=== PATIENT | male | born 1955 | race Caucasian/White ===

== ENCOUNTER → 2018-11-19 | Outpatient (CLI) | payer BC | LOC: RAD 07:21 | DX: R13.12 Dysphagia, oropharyngeal phase (principal); R05 Cough; K14.8 Other diseases of tongue; Z85.810 Personal history of malignant neoplasm of tongue; Z98.890 Other specified postprocedural states; Z92.21 Personal history of antineoplastic chemotherapy; Z92.3 Personal history of irradiation; Z96.5 Presence of tooth-root and mandibular implants ==

== ENCOUNTER 2019-04-27 12:15 | Emergency (ER) | payer BC ==
[~2019-04-27] VITALS: Ht 185.4 cm; Wt 77.3 kg
[2019-04-27] MEDS ORDERED: LEVOTHYROXINE0.05 MG PO (12:31)
[2019-04-27 12:51] LABS: EOS # 0.1 (0.04-0.40); EOS % 0.7 % (0.0-4.0); HEMATOCRIT 41.4 % (42.0-52.0); HEMOGLOBIN 13.9 g/dL (13.5-18.0); LYMPH# 1.3 (1.50-4.00); MEAN CELL VOLUME 90 fl (78-100); MEAN CORPUSCULAR HEMOGLOBIN 30 pg (27-31); MEAN CORPUSCULAR HGB CONC 34 g/dL (33-37); MEAN PLATELET VOLUME 9.2 fl (7.4-10.4); MONO # 0.7 (0.20-0.80); NEU # 4.9 (1.40-6.50); PLATELET COUNT 304 K/mm3 (130-400); RED BLOOD COUNT 4.62 M/mm3 (4.20-5.60); RED CELL DISTRIBUTION WIDTH 14.5 % (11.5-14.5); WHITE BLOOD COUNT 6.9 K/mm3 (4.8-10.8)
[2019-04-27 12:59] LABS: ALBUMIN 4.1 g/dL (3.4-4.8); POTASSIUM 4.2 mmol/L (3.5-5.1)
[2019-04-27 13:00] LABS: CALCIUM 8.9 mg/dL (8.3-10.5)
[2019-04-27 13:01] LABS: TOTAL PROTEIN 7.1 g/dL (6.2-8.1)
[2019-04-27 13:03] LABS: TOTAL BILIRUBIN 0.9 mg/dL (0.2-1.2)
[2019-04-27 13:05] LABS: PH-URINE 6.5 (5.0 - 8.0); URINE APPEARANCE CLEAR; URINE BILIRUBIN NEGATIVE (NEGATIVE); URINE BLOOD NEGATIVE (NEGATIVE); URINE COLOR YELLOW; URINE GLUCOSE NEGATIVE (NEGATIVE); URINE KETONE 2+ (NEGATIVE); URINE LEUKOCYTE ESTERASE NEGATIVE (NEGATIVE); URINE NITRATE NEGATIVE (NEGATIVE); URINE PROTEIN(semi-quant) NEGATIVE (NEGATIVE); URINE UROBILINOGEN NORMAL (NORMAL)
[2019-04-27 13:06] LABS: URINE WBC 0-1 /hpf (0-3)
[2019-04-27 16:05] LABS: POTASSIUM 4.3 mmol/L (3.5-5.1)
[2019-04-27 17:20] VITALS: BP 132/68
== END 2019-04-27 17:20 | disposition home or self-care (01) ==
LOC: ED 12:15
PROVIDERS: Family Medicine
DX: E86.9 Volume depletion, unspecified (principal); E87.1 Hypo-osmolality and hyponatremia; T67.5XXA Heat exhaustion, unspecified, initial encounter; E03.9 Hypothyroidism, unspecified; Z87.891 Personal history of nicotine dependence; Z98.890 Other specified postprocedural states
CPT/HCPCS: J7030

== ENCOUNTER → 2019-04-30 | Outpatient (CLI) | payer BC ==
[2019-04-27 17:20] VITALS: BP 132/68
[~2019-04-30] MED LIST: LEVOTHYROXINE0.05 MG PO
[2019-04-30 11:05] LABS: POTASSIUM 4.2 mmol/L (3.5-5.1)
[2019-04-30 11:06] LABS: CALCIUM 9.1 mg/dL (8.3-10.5)
== END ==
LOC: LAB 10:45
PROVIDERS: Family Medicine
DX: E87.1 Hypo-osmolality and hyponatremia (principal)

== ENCOUNTER → 2019-05-02 | Outpatient (CLI) | payer BC ==
[2019-04-27 17:20] VITALS: BP 132/68
== END ==
LOC: RAD 15:15
DX: R19.09 Other intra-abdominal and pelvic swelling, mass and lump (principal)

== ENCOUNTER → 2019-06-26 | Outpatient (CLI) | payer BC ==
[2019-06-26 18:54] LABS: EOS # 0.1 (0.04-0.40); EOS % 3.2 % (0.0-4.0); HEMATOCRIT 41.2 % (42.0-52.0); HEMOGLOBIN 13.9 g/dL (13.5-18.0); LYMPH# 1.1 (1.50-4.00); MEAN CELL VOLUME 91 fl (78-100); MEAN CORPUSCULAR HEMOGLOBIN 31 pg (27-31); MEAN CORPUSCULAR HGB CONC 34 g/dL (33-37); MEAN PLATELET VOLUME 10.3 fl (7.4-10.4); MONO # 0.3 (0.20-0.80); NEU # 2.7 (1.40-6.50); PLATELET COUNT 231 K/mm3 (130-400); RED BLOOD COUNT 4.53 M/mm3 (4.20-5.60); RED CELL DISTRIBUTION WIDTH 14.1 % (11.5-14.5); WHITE BLOOD COUNT 4.3 K/mm3 (4.8-10.8)
[2019-06-26 19:03] LABS: ALBUMIN 3.8 g/dL (3.4-4.8)
[2019-06-26 19:04] LABS: CALCIUM 8.8 mg/dL (8.3-10.5)
[2019-06-26 19:05] LABS: TOTAL PROTEIN 6.6 g/dL (6.2-8.1)
[2019-06-26 19:07] LABS: TOTAL BILIRUBIN 0.7 mg/dL (0.2-1.2)
== END ==
LOC: LAB 18:31
PROVIDERS: Family Medicine
DX: Z00.00 Encounter for general adult medical examination without abnormal findings (principal)

== ENCOUNTER 2019-11-24 21:42 | Emergency (ER) | payer BC ==
[2019-11-24 22:51] LABS: HEMOGLOBIN 14.8 g/dL (13.5-18.0); MEAN CELL VOLUME 92 fl (78-100); MEAN CORPUSCULAR HEMOGLOBIN 30 pg (27-31); MEAN CORPUSCULAR HGB CONC 33 g/dL (33-37); MEAN PLATELET VOLUME 10.4 fl (7.4-10.4); PLATELET COUNT 276 K/mm3 (130-400); RED BLOOD COUNT 4.89 M/mm3 (4.20-5.60); RED CELL DISTRIBUTION WIDTH 14.1 % (11.5-14.5); WHITE BLOOD COUNT 13.3 K/mm3 (4.8-10.8)
[2019-11-24 22:59] LABS: BAND 5 % (0-10); LYMPHOCYTE 6 % (20-51); MONOCYTE 5 % (3-10); NEUTROPHILS 81 % (42-75)
[2019-11-24 23:01] LABS: POTASSIUM 3.5 mmol/L (3.5-5.1); SODIUM 140 mmol/L (136-145)
[2019-11-24 23:02] LABS: CALCIUM 8.5 mg/dL (8.3-10.5)
[2019-11-24 23:03] LABS: GLUCOSE 108 mg/dL (75-110); TOTAL PROTEIN 6.7 g/dL (6.2-8.1)
[2019-11-24 23:04] LABS: CARBON DIOXIDE 23 mmol/L (23-31)
[2019-11-24 23:05] LABS: TOTAL BILIRUBIN 0.5 mg/dL (0.2-1.2)
[2019-11-24 23:09] LABS: AST-SGOT 42 U/L (5-34)
[2019-11-24 23:10] LABS: ALT/SGPT 29 U/L (0-55); LIPASE 5 U/L (8-78)
[2019-11-24 23:16] LABS: TROPONIN-I < 0.03 ng/mL (<0.030)
[2019-11-25 01:04] LABS: URINE APPEARANCE HAZY; URINE BILIRUBIN NEGATIVE (NEGATIVE); URINE BLOOD NEGATIVE (NEGATIVE); URINE COLOR YELLOW; URINE GLUCOSE NEGATIVE (NEGATIVE); URINE KETONE NEGATIVE (NEGATIVE); URINE LEUKOCYTE ESTERASE NEGATIVE (NEGATIVE); URINE NITRATE NEGATIVE (NEGATIVE); URINE PROTEIN(semi-quant) 1+ mg/dL (NEGATIVE); URINE UROBILINOGEN NORMAL (NORMAL)
[2019-11-25 01:05] LABS: URINE MUCUS PRESENT (NOT PRESENT)
[2019-11-25] MEDS ORDERED: ZOFRAN ODT4 MG PO (01:38)
[2019-11-25 02:22] VITALS: BP 110/71
== END 2019-11-25 02:22 | disposition home or self-care (01) ==
LOC: ED 21:42
PROVIDERS: Family Medicine
DX: E86.9 Volume depletion, unspecified (principal); R11.2 Nausea with vomiting, unspecified; E03.9 Hypothyroidism, unspecified
CPT/HCPCS: J2060; J2405; J7030

== ENCOUNTER 2024-02-24 20:18 | Emergency (ER) | payer OTHER ==
[~2024-02-24 20:18] MED LIST changes: +NS 1,000 ML IV ONE; +ZOFRAN ODT4 MG PO
[2024-03-29 05:21] LABS: HEMATOCRIT 43.2 % (42.0-52.0); HEMOGLOBIN 14.7 g/dL (13.5-18.0); MEAN CELL VOLUME 92 fl (78-100); MEAN CORPUSCULAR HEMOGLOBIN 31 pg (27-31); MEAN CORPUSCULAR HGB CONC 34 g/dL (33-37); MEAN PLATELET VOLUME 9.3 fl (7.4-10.4); PLATELET COUNT 301 K/mm3 (130-400); RED BLOOD COUNT 4.72 M/mm3 (4.20-5.60); RED CELL DISTRIBUTION WIDTH 14.3 % (11.5-14.5); WHITE BLOOD COUNT 16.7 K/mm3 (4.8-10.8)
[2024-03-29 05:25] LABS: ALBUMIN 3.6 g/dL (3.4-4.8); ALT/SGPT 23 U/L (0-55); AST-SGOT 34 U/L (5-34); BAND 6 % (0-10); CALCIUM 8.5 mg/dL (8.3-10.5); CARBON DIOXIDE 22 mmol/L (23-31); GLUCOSE 95 mg/dL (75-110); LYMPHOCYTE 4 % (20-51); MONOCYTE 4 % (3-10); NEUTROPHILS 84 % (42-75); SODIUM 132 mmol/L (136-145); TOTAL BILIRUBIN 0.3 mg/dL (0.2-1.2); TOTAL PROTEIN 6.2 g/dL (6.2-8.1); TROPONIN-I < 0.030 ng/mL (0.00-0.033); URINE COLOR YELLOW (YELLOW)
[2024-03-29 05:26] LABS: URINE APPEARANCE CLEAR (CLEAR); URINE BILIRUBIN NEGATIVE (NEGATIVE); URINE BLOOD NEGATIVE (NEGATIVE); URINE GLUCOSE NEGATIVE (NEGATIVE); URINE KETONE NEGATIVE (NEGATIVE); URINE LEUKOCYTE ESTERASE NEGATIVE (NEGATIVE); URINE NITRATE NEGATIVE (NEGATIVE); URINE PROTEIN(semi-quant) NEGATIVE (NEGATIVE); URINE WBC 0-1 /hpf (0-3)
== END 2024-02-24 22:57 | disposition home or self-care (01) ==
LOC: ED 20:18
PROVIDERS: Family Medicine
DX: E87.1 Hypo-osmolality and hyponatremia (principal)
CPT/HCPCS: J7030